=== PATIENT | male | born 1985 | race Asian ===

== ENCOUNTER 2019-09-24 06:09 | Emergency (ER) | payer OTHER ==
[2019-09-24 06:25] VITALS: BP 118/88; PULSE 73; TEMP 98.3; BMI 22.7
== END 2019-09-24 06:30 | disposition home or self-care (01) ==
LOC: JER 06:09
DX: S60.112A Contusion of left thumb with damage to nail, initial encounter (principal); Z48.00 Encounter for change or removal of nonsurgical wound dressing
CPT/HCPCS: 99281-25

== ENCOUNTER 2021-02-19 04:35 | Day surgery (SDC) | payer BC, OTHER ==
[2021-02-17 12:33] VITALS: BMI 25.0
[2021-02-19] MEDS ORDERED: MIDAZOLAM HCL 2 MG/2 ML SINGLE DOSE VIAL ONE ×2 (08:48)
[2021-02-19] MEDS ORDERED: BUPIVACAINE LIPOSOME/PF (EXPAREL) 266 MG/20 ML VIAL ONE (08:49)
[2021-02-19] MEDS ORDERED: fentaNYL CITRATE 250 MCG/5 ML VIAL ONE (11:38)
[2021-02-19] MEDS ORDERED: ceFAZolin SODIUM 1 GM VIAL IVPB ONE (11:43)
[2021-02-19] MEDS ORDERED: LIDOCAINE HCL/PF 2% SDV 5ML VIAL ONE ×2 (11:46→11:53)
[2021-02-19] MEDS ORDERED: ceFAZolin SODIUM 1 GM VIAL ONE ×2 (11:46→11:53)
[2021-02-19] MEDS ORDERED: DEXAMETHASONE SOD PHOSPHATE 4 MG/1 ML VIAL ONE ×2 (11:46→11:53)
[2021-02-19] MEDS ORDERED: GLYCOPYRROLATE 0.2 MG/1 ML VIAL ONE (11:53)
[2021-02-19] MEDS ORDERED: LIDOCAINE HCL 2% JELLY (5 ML/TUBE) ONE (11:53)
[2021-02-19] MEDS ORDERED: NEOSTIGMINE METHYLSULFATE 0.5 MG/ML - 10 ML MDV ONE (11:53)
[2021-02-19] MEDS ORDERED: SODIUM CHLORIDE 0.9% P/F 10 ML VIAL IJ ONE (11:53)
[2021-02-19] MEDS ORDERED: PROPOFOL 20 ML ONE (13:02)
[2021-02-19] MEDS ORDERED: oxyCODONE HCL 5 MG TABLET PO PRN (13:44)
[2021-02-19] MEDS ORDERED: ONDANSETRON 4 MG/2 ML VIAL IVPUSH PRN (13:44)
[2021-02-19] MEDS ORDERED: LACTATED RINGERS SOLUTION 1,000 ML IV SCH (13:45)
[2021-02-19] MEDS ORDERED: HYDROmorphone HCl 2 MG/ML VIAL ONE (14:31)
[2021-02-19] MEDS ORDERED: oxyCODONE HCL 5 MG TABLET ONE (17:35)
[2021-02-19 18:45] VITALS: BP 119/70; PULSE 78; TEMP 97.8
[2021-02-19] MEDS ORDERED: ONDANSETRON *ODT* 4 MG TABLET ONE ×2 (18:56→18:58)
== END 2021-02-19 19:04 | disposition home or self-care (01) ==
LOC: JASU-SURG 04:35
PROVIDERS: ATTEND Surgery
PROC: 8E0W4CZ Robotic Assisted Procedure of Trunk Region, Percutaneous Endoscopic Approach (ICD-10-PCS; 2021-02-19)
PROC: 0YU54JZ Supplement Right Inguinal Region with Synthetic Substitute, Percutaneous Endoscopic Approach (ICD-10-PCS; principal; 2021-02-19 10:30)
DX: K40.30 Unilateral inguinal hernia, with obstruction, without gangrene, not specified as recurrent (principal)
CPT/HCPCS: 49650; S2900; 94760; Q0162

== ENCOUNTER 2023-04-22 22:54 | Emergency (ER) | payer SELFPAY ==
[2023-04-22] MEDS ORDERED: ACETAMINOPHEN 1000 MG/100 ML BAG IVPB ONE (23:28)
[2023-04-22] MEDS ORDERED: LACTATED RINGERS SOLUTION 1000 ML INFUS.BAG IV ONE (23:28)
[2023-04-22 23:29] VITALS: BMI 22.8
[2023-04-22] MEDS ORDERED: ACETAMINOPHEN INJECTION 100 ML IVPB ONE (23:49)
[2023-04-22 23:53] LABS: BASO % 0.2 % (0-2.0); EOS % 0.4 % (0-4.5); HEMATOCRIT 41.2 % (35.4-49); HEMOGLOBIN 13.5 GM/dL (11.7-16.9); LYMPH % 11.6 % (8-40); MCH 23.4 pg (25.7-33.7); MCHC 32.7 g/dl (32.0-35.9); MEAN CELL VOLUME 71.5 fl (80-96); MEAN PLT VOLUME 8.2 fl (7.5-11.1); MONO % 10.6 % (3.8-10.2); NEUT % 77.2 % (42.8-82.8); PLATELET COUNT 182 10^3/uL (134-434); RBC 5.76 M/mm3 (4.00-5.60); RDW 13.7 % (11.9-15.9); WHITE BLOOD COUNT 8.1 K/mm3 (4.0-10.0)
[2023-04-23 00:19] LABS: POTASSIUM 3.8 mmol/L (3.5-5.1)
[2023-04-23 00:20] LABS: CALCIUM 9.3 mg/dL (8.5-10.1)
[2023-04-23 00:21] LABS: ALBUMIN 4.4 g/dl (3.4-5.0); MAGNESIUM 2.1 mg/dL (1.8-2.4)
[2023-04-23 00:24] LABS: CREATININE 1.2 mg/dL (0.55-1.3)
[2023-04-23 00:26] LABS: BILIRUBIN,TOTAL 0.3 mg/dL (0.2-1)
[2023-04-23] MEDS ORDERED: IBUPROFEN 400 MG TABLET (FP) PO ONE ×2 (00:44→01:02)
[2023-04-23 00:48] VITALS: BP 108/59; PULSE 98; RESP 20; TEMP 101.1
== END 2023-04-23 01:10 | disposition home or self-care (01) ==
LOC: JER 22:54
PROC: 3E033NZ Introduction of Analgesics, Hypnotics, Sedatives into Peripheral Vein, Percutaneous Approach (ICD-10-PCS; principal; 2023-04-22)
DX: R51.9 Headache, unspecified (principal); R53.1 Weakness; R50.9 Fever, unspecified; J10.1 Influenza due to other identified influenza virus with other respiratory manifestations; Z20.822 Contact with and (suspected) exposure to COVID-19
CPT/HCPCS: 0241U-QW; 36415; 80053; 83735; 85025; 99284-25